=== PATIENT | female | born 1950 | race Native Hawaiian/Other Pacific Islander ===

== ENCOUNTER 2019-03-15 07:49 | Day surgery (SDC) | payer OTHER | END 2019-03-15 09:12 | disposition home or self-care (01) | LOC: OR 07:49 | PROC: 3E0R33Z Introduction of Anti-inflammatory into Spinal Canal, Percutaneous Approach (ICD-10-PCS; principal; 2019-03-15) | PROC: B01BYZZ Fluoroscopy of Spinal Cord using Other Contrast (ICD-10-PCS; 2019-03-15) | DX: M54.16 Radiculopathy, lumbar region (principal) | CPT/HCPCS: J1020 ==

== ENCOUNTER 2019-04-11 08:23 | Day surgery (SDC) | payer OTHER | END 2019-04-11 09:35 | disposition home or self-care (01) | LOC: OR 08:23 | PROC: 3E0R33Z Introduction of Anti-inflammatory into Spinal Canal, Percutaneous Approach (ICD-10-PCS; principal; 2019-04-11) | PROC: B01BYZZ Fluoroscopy of Spinal Cord using Other Contrast (ICD-10-PCS; 2019-04-11) | DX: M51.16 Intervertebral disc disorders with radiculopathy, lumbar region (principal) ==